=== PATIENT | male | born 1985 | race Caucasian/White ===

== ENCOUNTER 2023-03-31 12:08 | Emergency (ER) | payer BC, SELFPAY ==
[2023-03-31 12:09] VITALS: BP 121/81; PULSE 40; RESP 15; TEMP 36.2; O2SAT 97; BMI 25.9
--- NOTE | 2023-03-31 12:22 | EKG12_ITS ---
Test Reason : SYNCOPE Blood Pressure : / mmHG Vent. Rate : 043 BPM Atrial Rate : 043 BPM P-R Int : 226 ms QRS Dur : 116 ms QT Int : 446 ms P-R-T Axes : 058 116 048 degrees QTc Int : 376 ms Marked sinus bradycardia with marked sinus arrhythmia with 1st degree A-V block Right axis deviation Abnormal ECG Confirmed by CARLOS GROSS, SCOTT ([id number]), photograph editor ANT VALADEZ ([id number]) on 04/02/2023 1:16:57 PM Referred By: Torey Ferreira Confirmed By:SCOTT GONZALEZ MD
--- NOTE | 2023-03-31 12:22 | EX.ED.DYSGE1 ---
HPI History of Present Illness Chief Complaint: Syncope Detail of Chief Complaint: Syncope while giving blood for lab test. Informant: patient and spouse/S.O. Onset/Context/Timing Onset: Today Context: Sudden Onset Timing: Intermittent Current Severity: Gone Maximum Severity: Mild Narrative Narrative: 37-year-old male noticing a past medical or surgical history. He had labs drawn yesterday at his primary care physician's office. They called him back to have more labs done today. When he was given blood today he had a syncopal episode. States he is never passed out before but has felt lightheaded before when he is given blood. He has no cardiac history. He is not recently been ill. Prior similar symptoms: No Recent Illness/Hospitalization: No PFSH PFSH Medical History no medical history no medical history Home Medications NK 03/31/23 [History Last Taken Unknown] Allergy/AdvReac Type Severity Reaction Status Date / Time No Known Allergies Allergy Verified 03/31/23 12:14 Social History Smoking Status: Never smoker ROS ROS ED ROS Narrative No recent illness. Review of Systems ROS Unobtainable: Denies due to encephalopathy Constitutional Constitutional ED: Denies chills or fever(s) Eyes Eyes: Denies blurry vision ENT ENT ED: Denies ear pain Cardiovascular Cardiovascular: Denies chest pain Respiratory/Chest Respiratory/Chest: Denies cough or dyspnea Gastrointestinal Gastrointestinal: Denies abdominal pain Genitourinary Genitourinary ED: Denies dysuria Musculoskeletal Musculoskeletal: Denies arthralgias Integumentary Denies abscess Neurologic Neurologic: Denies headache(s) Psychiatric Psychiatric: Denies anxiety or depression Endocrine Endocrinology: Denies cold intolerance Hematologic/Lymphatic Hematologic/Lymphatic: Reports none Allergic/Immunologic Allergic/Immunologic ED: Denies mouth swelling or tongue swelling EXAM Physical Exam Narrative Exam Narrative: [id number] male no acute distress. Vital signs stable afebrile. His pulses 40 initially when I am in the room and its 50s. He is awake alert. He is a normal good blood pressure with it. He is in no distress. and children in the room. HEENT exam unremarkable atraumatic. Pupils round reactive light. Lungs clear. Heart regular rhythm rate about 58 no murmur. Chest wall nontender. Abdomen soft nontender. Moving all 4 extremities. Normal hotel housekeeper strength. Normal dorsi plantarflexion. No edema. Nontender no deformity. Neurologically he is awake and alert with no focal motor deficits. Const Vital Signs: 03/31/23 12:09 03/31/23 12:14 03/31/23 12:44 Temperature 97.1 F L Temperature Source Temporal Pulse Rate 40 L 49 L Respiratory Rate 15 11 L Respiratory Effort Normal Non-Labored Respiratory Pattern Normal Blood Pressure 121/81 H 120/89 H Blood Pressure Mean 94 99 Pulse Ox 97 Oxygen Delivery Method Room Air Positive well nourished and well developed; Negative for obese, cachectic, contractures or unkempt General Appearance ED: well developed and NAD; Negative for unkempt, cachectic, contractures, cyanotic or diaphoretic Nutritional Appearance: Negative for cachectic or obese HEENT Reports moist mucous membranes Negative for trauma or tenderness Eyes PERRL and EOMs intact bilaterally General Eye ED: Negative for pale conjunctiva or scleral icterus Neck no lymphadenopathy, supple and no JVD General: Negative for tenderness Lymph Lymphatic: Negative for other Chest Wall inspection of chest normal and palpation of chest normal Resp normal respiratory effort and clear to auscultation bilaterally Effort and Inspection: Negative for retractions Auscultation: Negative for rales, rhonchi or wheezes Cardio regular rhythm, S1 normal heart sound and S2 normal heart sound; Negative for regular rate Rate: bradycardia GI normal to inspection, nondistended, normoactive bowel sounds, non-tender, non-distended and no masses Inspection: Negative for abdominal distention Palpation: soft; Negative for tender or guarding Back/Spine no CVA tenderness General Back: Negative for CVA tenderness Cervical Spine: Negative for cervical spine tenderness Thoracic Spine / Upper Back: Negative for thoracic spinal tenderness or paraspinal muscle tenderness Lumbar Spine / Lower Back: Negative for lumbar spinal tenderness Extremity normal to inspection General Extremety ED: Negative for edema or tenderness General Extremity: Negative for edema Neuro oriented x3, CN's II-XII intact bilaterally and no sensory deficits noted Sensorium / Orientation: alert; Negative for orientation impaired, lethargic or stuporous Motor Exam: strength 5/5 throughout; Negative for general weakness or strength abnormal Psych mental status grossly normal Appearance: Negative for unkempt Attitude: No agitated Mood & Affect: Negative for depressed, anxious or tearful Skin no rashes or lesions noted, no wounds and skin turgor normal General Skin Exam: elasticity normal Lesions: No lesion noted Rashes: No rashes noted Trauma: Negative for abrasion Wounds: Negative for wounds noted MDM MDM MDM Narrative Medical decision making narrative: 37-year-old male who had a syncopal event while giving blood today for lab work. He had similar symptoms before except he is never passed out. Feels fine currently. Believes his blood pressure is normally in the low 60s. No chest pain. No shortness of breath. No recent illness. Clinically looks well he is a normal exam other than he is bradycardic. Clinically I think this was vasovagal syncope. I did review his labs on MyChart for the [facility] his labs yesterday were actually very good his CBC, CMP and cholesterol. I do not know what they would be drawing acute labs today because there were no significant abnormalities from those labs yesterday. He does not think he had any other labs drawn that I am not seeing the results for. EKG will be obtained. I am going to try to touch the laboratory in clinic to determine if there is any reason he needed acute blood work today. Repeat exam patient is doing well at 116 p.m. He will be discharged home. This appears to be the episode of vasovagal syncope after blood draw. He clinically looks well. His heart rate and blood pressure are fine. I did speak to his primary care physician and he it really was a misunderstanding that he did not need labs done emergently today. He chronically has elevated hemoglobin. And I will follow him up as needed. Lab Data Attestation: I reviewed the patient's lab results. Lab results narrative: I reviewed his outpatient labs from the [facility]. CBC, CMP and cholesterol. As were basically unremarkable. Cholesterol slightly elevated. Rhythm Strip Rhythm Strip: Sinus bradycardia Rate: 43 Ectopy: None EKG Initial EKG: Attestation: I personally reviewed and interpreted this EKG as follows: Interpretation: Sinus Rhythm and Sinus Bradycardia Comments: Sinus bradycardia rate of 43 no acute signs of AK or ischemia. She will Discharge Plan Triage Chief Complaint: Syncope ED Provider: Torey Ferreira Dx/Rx/DC Orders Clinical Impression: Vasovagal syncope Instructions: ED Fainting, Vagal Reaction Prescriptions: No Action NK Primary Care Provider: Lucas Duffy Referrals: Lucas Duffy MD [Primary Care Provider] - As Needed Activity Restrictions/Additional Instructions: Plenty of fluids. Follow-up with your doctor as needed. Disposition Disposition: Home, Self Care
[2023-03-31 12:44] VITALS: BP 120/89; PULSE 49; RESP 11
--- NOTE | 2023-03-31 13:19 | NURSING ---
NO OLD EKGS
[2023-03-31 13:23] VITALS: BP 126/81; PULSE 51
== END 2023-03-31 13:23 | disposition home or self-care (01) ==
PROVIDERS: Emergency Provider Emergency Medicine; PCP Family Medicine; Referring Provider Emergency Medicine; Visit Provider Emergency Medicine
DX: R55 Syncope and collapse (principal)
CPT/HCPCS: 93005; 99284